=== PATIENT | female | born 1945 | race Caucasian/White ===

== ENCOUNTER → 2024-02-12 13:20 | Outpatient (REF) | payer MEDICARE, SELFPAY ==
[2024-02-12 15:52] LABS: % Basophils 0.9 % (0-2); % Eosinophils 5.6 % (0-6); % Immature Granulocytes 0.2 % (0-0.5); % Monocytes 7.3 % (1.7-9.3); Absolute Eosinophils 0.2 10^3/uL (0-0.7); Absolute Lymphocytes 0.8 10^3/uL (1.2-3.4); Absolute Monocytes 0.3 10^3/uL (0.1-0.6); Absolute Neutrophils 2.9 10^3/uL (1.4-6.5); Hematocrit 32.6 % (37.0-47.0); Hemoglobin 11.3 g/dL (12.0-16.0); Mean Corp Hgb Conc. 34.7 g/dL (33.0-37.0); Mean Corpuscular Hgb 32.9 pg (27.0-31.0); Nucleated Red Blood Cells % 0 %; Platelet Count 235 10^3/uL (130-400); Red Blood Cell Count 3.43 10^6/uL (4.20-5.40); White Blood Cell Count 4.3 10^3/uL (4.8-10.8)
[2024-02-12 16:03] LABS: ALT (SGPT) 43 U/L (0-35); AST (SGOT) 47 U/L (14-36); Albumin 4.4 g/dl (3.5-5.0); Alkaline Phosphatase 157 U/L (38-126); Blood Urea Nitrogen 13 mg/dl (7-17); Calcium 9.7 mg/dl (8.4-10.2); Carbon Dioxide 26 mmol/L (22-30); Chloride 100 mmol/L (98-107); Glucose 93 mg/dl (70-99); Iron 109 ug/dl (37-170); Potassium 4.4 mmol/L (3.5-5.1); Sodium 137 mmol/L (135-145); Total Bilirubin 0.7 mg/dl (0.2-1.3); Total Cholesterol 197 mg/dl (50-199); Total Protein 6.8 g/dl (6.3-8.2); Triglyceride 62 mg/dl (10-149); Very Low Density Lipoprotein 12 mg/dl (0-30); eGFR > 60.00
[2024-02-12 16:13] LABS: HDL Cholesterol 117 mg/dl; LDL Cholesterol, Calculated 68 mg/dl
[2024-02-12 16:30] LABS: TSH Reflex To Free T4 2.76 uIU/ml (0.47-4.68)
[2024-02-12 16:49] LABS: Vitamin B12 250 pg/ml (239-931)
== END ==
LOC: HWLAB 13:20
PROVIDERS: ATTENDING PHYSICIAN Internal Medicine Cardiovascular Disease; FAMILY PHYSICIAN Registered Nurse
DX: D51.0 Vitamin B12 deficiency anemia due to intrinsic factor deficiency (principal); E78.2 Mixed hyperlipidemia; E78.5 Hyperlipidemia, unspecified; I10 Essential (primary) hypertension; D64.9 Anemia, unspecified; Z00.00 Encounter for general adult medical examination without abnormal findings; G45.9 Transient cerebral ischemic attack, unspecified
CPT/HCPCS: 36415; 80053; 80061; 82607; 83540; 84443; 85025

== ENCOUNTER → 2024-03-08 12:49 | Outpatient (REF) | payer MEDICARE, SELFPAY | LOC: RCS 12:49 | PROVIDERS: ATTENDING PHYSICIAN Internal Medicine Cardiovascular Disease; FAMILY PHYSICIAN Family Medicine; REFERRING PHYSICIAN Registered Nurse | DX: I35.8 Other nonrheumatic aortic valve disorders (principal); R05.9 Cough, unspecified | CPT/HCPCS: 71046; 93306 ==

== ENCOUNTER → 2024-05-19 10:56 | Outpatient (REF) | payer MEDICARE, SELFPAY | LOC: HWWDC 10:56 | PROVIDERS: ATTENDING PHYSICIAN Registered Nurse | DX: Z12.31 Encounter for screening mammogram for malignant neoplasm of breast (principal); M81.0 Age-related osteoporosis without current pathological fracture | CPT/HCPCS: 77063; 77067; 77080 ==

== ENCOUNTER → 2024-11-23 13:37 | Outpatient (REF) | payer OTHER, SELFPAY | LOC: RAD 13:37 | PROVIDERS: ATTENDING PHYSICIAN Registered Nurse | DX: R74.8 Abnormal levels of other serum enzymes (principal); K80.50 Calculus of bile duct without cholangitis or cholecystitis without obstruction | CPT/HCPCS: 74177; Q9967 ==

== ENCOUNTER → 2024-12-16 09:15 | Outpatient (REF) | payer OTHER, SELFPAY | LOC: RAD 09:15 | PROVIDERS: ATTENDING PHYSICIAN Internal Medicine Cardiovascular Disease; FAMILY PHYSICIAN Family Medicine | DX: I65.22 Occlusion and stenosis of left carotid artery (principal) | CPT/HCPCS: 93880 ==

== ENCOUNTER 2024-12-24 13:45 | Emergency (ER) | payer OTHER, SELFPAY ==
[2024-12-24 13:55] VITALS: BP 155/84
--- NOTE | 2024-12-24 14:02 | ED.GENMED ---
ED Provider Triage
<Elida De Dios PA-C - Last Filed: 12/24/24 14:04>
-
Patient seen by provider in Triage?: Seen in Triage
Attestation: A medical screening examination has been initiated by a qualified medical provider. Based on the assessment performed at this time, it has been determined that an emergent medical condition may exist and the patient has been informed
that further medical evaluation and possible additional diagnostic testing may be needed.
HPI: 79yoF here with diarrhea and weakness that started yesterday. Ate steamed clams at a restaurant the night before her symptoms began. Feeling 50% better today. Only 1 BM this morning. Went to urgent care and had labs. Sent to the ED for abnormal
electrolytes.
GENERAL: Alert , in no apparent distress
EYE: No visual abnormalities.
NECK: Trachea midline
ENT: No visible abnormalities.
LUNGS: No acute respiratory distress
NEUROLOGICAL: Alert and oriented
SKIN: Skin intact. No visible changes.
MUSCULOSKELETAL: Moving extremities normally
PSYCH: Normal and appropriate interaction.
This is a medical evaluation conducted in person to initiate diagnostic evaluation and provide initial therapeutics. Please see further documentation by the treating clinician.
CBC, CMP, and magnesium ordered.
History of Present Illness
<Elida De Dios PA-C - Last Filed: 12/24/24 14:04>
General
Chief Complaint: Abnormal Lab Value
Time Seen by Provider: 12/24/24 17:49
<Andreas Archibald PA-C - Last Filed: 12/24/24 20:21>
General
Source: patient
History of Present Illness
History of Present Illness:
79-year-old female presents complaining of generalized weakness and fatigue onset 2 days ago worse yesterday slightly improved today. She ate clams the night before she started with the symptoms. She had at least a dozen episodes of watery
diarrhea yesterday. There is no blood in the diarrhea. She tried to make herself vomit once. She was to ill to seek treatment yesterday at the urgent care but went today and was sent here as her electrolytes are off.
Past History
<Elida De Dios PA-C - Last Filed: 12/24/24 14:04>
Past History
ED Past Medical History: Cancer (Skin), CVA (Left M2 stenosis), HTN, Hypercholesterolemia, Psychiatric (Depression), Other (Arthritis, pernicious anemia, fatty liver, previously elevated liver function tests, an ultrasound in 2008 which showed
gallstone) and Other (TIA)
ED Past Surgical History: Other (Back surgery)
Social History
Tobacco: Non-smoker
Alcohol: Daily (Vodka 2 glasses)
Personal: (Engaged)
Living: with family (Significant other)
Employment: Employed
Phy Exam
<Andreas Archibald PA-C - Last Filed: 12/24/24 20:21>
Physical Exam
Physical Exam:
General: WEll appearing female, NAD
HEENT: NC/AT
heart: RRR, no murmurs
Lungs; CTA bilaterally
abd: soft, nontender, nondistended
Ext: no cyanosis
Skin: Warm, no rash
Course
<Elida De Dios PA-C - Last Filed: 12/24/24 14:04>
Orders/Labs/Results
Orders:
Orders
12/24/24 14:00
CMP [Comprehensive Metabolic Panel] Urgent
Complete Blood Count/With Diff Urgent
Magnesium Urgent
Comment: ADD ON
12/24/24 14:03
Add On- LAB Urgent
Tests Added?: magnesium
12/24/24 18:01
0.9% Sodium Chloride 1000 ml [Nss] 1,000 ml IV BOLUS
Abnormal Lab Results
12/24/24
14:00
WBC 3.0 L 10^3/uL
(4.8-10.8)
RBC 3.48 L 10^6/uL
(4.20-5.40)
Hgb 11.5 L g/dL
(12.0-16.0)
Hct 33.1 L %
(37.0-47.0)
MCH 33.0 H pg
(27.0-31.0)
Absolute Lymphs (auto) 0.4 L 10^3/uL
(1.2-3.4)
Neutrophils % 78.5 H %
(42.2-75.2)
Lymphocytes % 12.3 L %
(20.5-51.1)
Sodium 127 L mmol/L
(135-145)
Glucose 107 H mg/dl
(70-99)
12/24/24 14:00
12/24/24 14:00
Vital Signs
Initial and Last Documented VS:
Initial Vital Signs
Temp Pulse Resp BP Pulse Ox
98.9 F 80 18 155/84 98
12/24/24 13:55 12/24/24 13:55 12/24/24 13:55 12/24/24 13:55 12/24/24 13:55
Last Documented Vital Signs
Temp Pulse Resp BP Pulse Ox
98.9 F 80 18 155/84 98
12/24/24 13:55 12/24/24 13:55 12/24/24 13:55 12/24/24 13:55 12/24/24 14:03
Marcelllt;Andreas Archibald PA-C - Last Filed: 12/24/24 20:21>
Orders/Labs/Results
Orders:
Orders
12/24/24 14:00
CMP [Comprehensive Metabolic Panel] Urgent
Complete Blood Count/With Diff Urgent
Magnesium Urgent
Comment: ADD ON
12/24/24 14:03
Add On- LAB Urgent
Tests Added?: magnesium
12/24/24 18:01
0.9% Sodium Chloride 1000 ml [Nss] 1,000 ml IV BOLUS
Abnormal Lab Results
12/24/24
14:00
WBC 3.0 L 10^3/uL
(4.8-10.8)
RBC 3.48 L 10^6/uL
(4.20-5.40)
Hgb 11.5 L g/dL
(12.0-16.0)
Hct 33.1 L %
(37.0-47.0)
MCH 33.0 H pg
(27.0-31.0)
Absolute Lymphs (auto) 0.4 L 10^3/uL
(1.2-3.4)
Neutrophils % 78.5 H %
(42.2-75.2)
Lymphocytes % 12.3 L %
(20.5-51.1)
Sodium 127 L mmol/L
(135-145)
Glucose 107 H mg/dl
(70-99)
12/24/24 14:00
12/24/24 14:00
Vital Signs
Initial and Last Documented VS:
Initial Vital Signs
Temp Pulse Resp BP Pulse Ox
98.9 F 80 18 155/84 98
12/24/24 13:55 12/24/24 13:55 12/24/24 13:55 12/24/24 13:55 12/24/24 13:55
Last Documented Vital Signs
Temp Pulse Resp BP Pulse Ox
98.9 F 80 18 155/84 98
12/24/24 13:55 12/24/24 13:55 12/24/24 13:55 12/24/24 13:55 12/24/24 14:03
Marcelllt;Andreas Archibald PA-C - Last Filed: 12/24/24 20:21>
MDM/Problems Addressed
Differential Diagnosis Includes:
Fatigue, recent diarrhea that has since improved. Consider viral illness versus electrolyte abnormality. Abdominal exam benign no indication for imaging.
Notable lab findings include sodium of 127. I suspect from volume loss from recent diarrheal illness.
Will hydrate and reassess.
<Elida De Dios PA-C - Last Filed: 12/24/24 14:04>
*Pulse Oximetry
SaO2: 98
Oxygen Mode of Delivery: Room air
<Andreas Archibald PA-C - Last Filed: 12/24/24 20:21>
*Pulse Oximetry
Patient hypoxic: no
*Critical Care Note
Total Time (30-74mins, 75-104mins- exclusive of procedures): Not Applicable
<Andreas Archibald PA-C - Last Filed: 12/24/24 20:21>
Update Note
Update Note:
Patient hydrated here looks and feels much better upon reassessment. I suspect underlying viral illness causing diarrhea and subsequent dehydration and hyponatremia. Stable for discharge. Recommend follow-up with family doctor
ED Attending Note
<Elida De Dios PA-C - Last Filed: 12/24/24 14:04>
-
Portions of this chart may have been created with voice recognition software.� Occasional wrong word or��sound alike� substitutions may have occurred due to the inherent limitations of voice recognition software.
Discharge Plan
Departure
Patient Disposition: Home (Routine Discharge)
Date of Disposition: 12/24/24
Time of Disposition: 20:20
Patient with high blood pressure during this ER visit?: No
Discharge Problem:
Dehydration
Instructions: Dehydration, Adult (DC)
Prescriptions:
No Action
folic acid 1 MG tablet
1 mg PO DAILY
atorvastatin 80 MG tablet
80 mg PO DAILY
amlodipine 10 MG tablet
10 mg PO DAILY
ezetimibe 10 MG tablet
10 mg PO DAILY
losartan 50 MG tablet
50 mg PO DAILY
acetaminophen [Tylenol Extra Strength] 500 MG tablet
1,000 mg PO Q6H 0RF
vitamin B complex
losartan 50 mg tablet
50 mg PO DAILY Qty: 20 0RF
Referrals:
Jewell Barrios MD [Family Provider, Family Practice]
Activity Restrictions/Additional Instructions:
Stay hydrated. Return if worse otherwise follow-up with family doctor. Please recheck your blood work this week to recheck your sodium
Interventions
Interventions:
*Risk Screen - Suicide Last Done: 12/24/24 13:55
*General Assessment Last Done: 12/24/24 13:55
*Neglect/Abuse Screening Last Done: 12/24/24 13:55
*ED- Fall Risk Assessment Last Done: 12/24/24 13:55
*ED COVID-19 Vaccine History Last Done: 12/24/24 13:55
Discharge Date and Time
Print Language: PORTUGUESE
[2024-12-24 14:08] LABS: Hematocrit 33.1 % (37.0-47.0); Hemoglobin 11.5 g/dL (12.0-16.0); Mean Corp Hgb Conc. 34.7 g/dL (33.0-37.0); Mean Corpuscular Volume 95.1 fL (81.0-99.0); Nucleated Red Blood Cells % 0 %; Platelet Count 146 10^3/uL (130-400); Red Cell Dist. Width 11.9 % (11.5-14.5)
[2024-12-24 14:21] LABS: ALT (SGPT) 26 U/L (0-35); AST (SGOT) 32 U/L (14-36); Albumin 4.2 g/dl (3.5-5.0); Alkaline Phosphatase 118 U/L (38-126); Blood Urea Nitrogen 14 mg/dl (7-17); Calcium 8.6 mg/dl (8.4-10.2); Carbon Dioxide 23 mmol/L (22-30); Chloride 98 mmol/L (98-107); Glucose 107 mg/dl (70-99); Magnesium 1.7 mg/dl (1.6-2.3); Potassium 3.7 mmol/L (3.5-5.1); Sodium 127 mmol/L (135-145); Total Protein 6.7 g/dl (6.3-8.2); eGFR > 60.00
[2024-12-24] MEDS: NSS 1000 IV (18:11)
== END 2024-12-24 20:46 | disposition home or self-care (01) ==
LOC: EMR 13:45
PROVIDERS: Student in an Organized Health Care Education/Training Program; EMERGENCY PHYSICIAN Emergency Medicine; FAMILY PHYSICIAN Family Medicine
DX: E86.0 Dehydration (principal); R19.7 Diarrhea, unspecified; R53.1 Weakness; E87.8 Other disorders of electrolyte and fluid balance, not elsewhere classified; I10 Essential (primary) hypertension; E78.00 Pure hypercholesterolemia, unspecified; M19.90 Unspecified osteoarthritis, unspecified site; D51.0 Vitamin B12 deficiency anemia due to intrinsic factor deficiency; F32.A Depression, unspecified; K76.0 Fatty (change of) liver, not elsewhere classified; Z86.73 Personal history of transient ischemic attack (TIA), and cerebral infarction without residual deficits; Z85.828 Personal history of other malignant neoplasm of skin
CPT/HCPCS: 99284; 96360; 80053; 83735; 85025